=== PATIENT | male | born 2000 | race Caucasian/White ===

== ENCOUNTER 2021-06-06 17:23 | Observation (INO) | payer OTHER ==
[~2021-06-06] VITALS: Ht 180.3 cm; Wt 72.6 kg
[2021-06-06 18:45] LABS: RED BLOOD COUNT 4.88 M/UL (4.20-5.50); WHITE BLOOD COUNT 20.8 K/UL (4.5-11.0)
[2021-06-06 19:03] LABS: BUN/CREATININE RATIO 19 (0-10)
[2021-06-07] MEDS ORDERED: ENOXAPARIN30 MG/0.3 SC (09:18)
[2021-06-07] MEDS ORDERED: HYDROCODON-ACE1 EAC2 PO ×2 (14:38→14:41)
== END 2021-06-07 17:17 | disposition home or self-care (01) ==
LOC: ER1 17:23 → CDU 19:09 → M/S 06-07 00:33
PROVIDERS: Emergency Medicine; ADMIT Orthopaedic Surgery
DX: S82.251A Displaced comminuted fracture of shaft of right tibia, initial encounter for closed fracture (principal); S82.401A Unspecified fracture of shaft of right fibula, initial encounter for closed fracture; X58.XXXA Exposure to other specified factors, initial encounter; Z20.822 Contact with and (suspected) exposure to COVID-19
CPT/HCPCS: 70450; 72125; 73590; 73600; 76000; 80053; 85025; 85610; 85730; 96365; 96366; 96374; 96375; 99284; C1713; G0378; J0690; J1100; J1170; J1650; J2001; J2270; J2405; J2704; J3010; J7120; U0002